=== PATIENT | female | born 1955 | race Caucasian/White ===

== ENCOUNTER 2016-09-25 22:54 | Emergency (ER) | payer SELFPAY ==
[~2016-09-25] VITALS: Ht 157.5 cm; Wt 63.0 kg
[2016-09-25 23:02] VITALS: Ht 157.5 cm; Wt 63.0 kg
[2016-09-26] MEDS ORDERED: HYDR-906 PO (00:43)
[2016-09-26] MEDS ORDERED: IBUP-1542 PO (00:43)
[2016-09-26] MEDS ORDERED: HYDROCODONE/APAP (10/325) TAB PO ONE (01:00)
--- NOTE | 2016-09-26 01:19 | ERD ---
ER Documentation Chief Complaint Date/Time DATE: 09/26/16 TIME: 01:15 Chief Complaint swollen upper lip/ left side of mouth,went to dentist for deep clean earlie HPI 61-year-old female presents to emergency department for complaints of left upper gum pain and swelling after the procedure was done today. Patient is complaining of pain, throbbing pain, 8/10 scale, mild better after taking Aleve. Patient denies any fever or chills. Patient had a procedure done in the dental office yesterday, was not differential pain medications. Patient denies any fever or chills. Patient is currently taking clindamycin to prevent infection of affected area. Patient was told to have very bad tooth decay. ROS All systems reviewed and are negative except as per history of present illness. Medications Home Meds Active Scripts Hydrocodone/Acetaminophen ([place] 5-325 Tablet) 1 Each Tablet, 1 TAB PO Q6H Y for SEVERE PAIN LEVEL 7-10, #20 TAB Prov:ORALIA HUNG [employer] DEVELOPMENT ENGINEER 09/26/16 Ibuprofen* (Motrin*) 600 Mg Tab, 600 MG PO Q6H Y for PAIN AND OR ELEVATED TEMP, #30 TAB Prov:ORALIA HUNG [employer] DEVELOPMENT ENGINEER 09/26/16 Allergies Allergies: Coded Allergies: No Known Drug Allergy (Verified Allergy, Unknown, 09/25/16) PMhx/Soc Medical and Surgical Hx: pt denies Surgical Hx History of Surgery: No Anesthesia Reaction: No Hx Neurological Disorder: No Hx Respiratory Disorders: No Hx Cardiac Disorders: Yes (HTN) Hx Psychiatric Problems: No Hx Miscellaneous Medical Probl: Yes (DM) Hx Alcohol Use: No Hx Substance Use: No Hx Tobacco Use: No Smoking Status: Never smoker FmHx Family History: No coronary disease, No diabetes, No other Physical Exam Vitals Vital Signs Date Time Temp Pulse Resp B/P Pulse Ox O2 Delivery O2 Flow Rate FiO2 09/25/16 23:02 99.0 85 20 151/75 99 Physical Exam GENERAL: The patient is well developed and appropriate for usual state of health, in no apparent distress. HEENT: Atraumatic. Ears: Normal tympanic membrane, no erythema or bulging. No ear canal swelling. No ear discharge. Nose: normal nasal turbinates, no erythema or swelling. Normal nasal discharge. Throat: oropharynx clear. No tonsillar swelling or tonsillar exudates. No lymphadenopathy. Patient's left upper dental area noted to be swollen, no facial abscess noted. Noted bilateral upper and lower tooth area decayed. CHEST: Clear to auscultation bilaterally. There are no rales, wheezes or rhonchi. HEART: Regular rate and rhythm. No murmurs, clicks, rubs or gallops. No S3 or S4. ABDOMEN: Soft, nontender and nondistended. Good bowel sounds. No rebound or guarding. No gross peritonitis. No gross organomegaly or masses. No Blank sign or McBurney point tenderness. BACK: No midline or flank tenderness. EXTREMITIES: Equal pulses bilaterally. There is no peripheral clubbing, cyanosis or edema. No focal swelling or erythema. Full range of motion. Grossly neurovascularly intact. NEURO: Alert and oriented. Cranial nerves 2-12 intact. Motor strength in all 4 extremities with 5/5 strength. Sensation grossly intact. Normal speech and gait. SKIN: There is no apparent rash or petechia. The skin is warm and dry. HEMATOLOGIC AND LYMPHATIC: There is no evidence of excessive bruising or lymphedema. No gross cervical, axillary, or inguinal lymphadenopathy. Results 24 hrs Current Medications Medications (Trade) Dose Ordered Sig/Po Route PRN Reason Start Time Stop Time Status Last Admin Dose Admin Acetaminophen/ Hydrocodone Bitart ([place] (10/325)) 1 tab ONCE ONCE PO 09/26/16 01:00 09/26/16 01:01 [place] Patient was given medication for pain here in emergency department, after treatment, patient verbalized feeling much better. Patient's pain is improved. Procedures/MDM Medical decision making: Patient symptoms most likely is consistent with pain from dental procedure done. It can also from her tooth decay. Patient currently already is on clindamycin to prevent infection on affected area, per scheduled was given for ibuprofen and [place] to help with pain control. No symptoms of any facial abscess. No symptoms of sepsis at this time. Patient presents hemodynamically stable. Patient was advised to return to emergency department for facial swelling, high fever, any worsening symptoms. Departure Diagnosis: Primary Impression: Pain, dental Condition: Stable Patient Instructions: Dental Pain Referrals: MAYITO TONG Additional Instructions: continue clindamycin, return for high fever, facial swelling worst symptoms ORALIA HUNG NP Sep 26, 2016 01:19
[2016-09-26 01:29] VITALS: BP 172/80; PULSE 78; RESP 18; TEMP 98.9
== END 2016-09-26 01:31 | disposition home or self-care (01) ==
LOC: FTE 22:54
DX: K08.89 Other specified disorders of teeth and supporting structures (principal); I10 Essential (primary) hypertension; E11.9 Type 2 diabetes mellitus without complications
CPT/HCPCS: 99283

== ENCOUNTER 2017-01-01 11:31 | Emergency (ER) | payer MEDICAID ==
[~2017-01-01] VITALS: Ht 152.4 cm; Wt 62.5 kg
[~2017-01-01 11:31] MED LIST: HYDR-906 PO; IBUP-1542 PO
[2017-01-01 11:33] VITALS: Ht 152.4 cm; Wt 62.5 kg
[2017-01-01] MEDS ORDERED: FAMOTIDINE 20 MG INJ INJ STA (13:03)
[2017-01-01] MEDS ORDERED: DIPHENHYDRAMINE 50 MG INJ IV STA (13:03)
[2017-01-01] MEDS ORDERED: SOD CHLORIDE 0.9% 500 ML IV STA (13:03)
[2017-01-01] MEDS ORDERED: METHYLPREDNISOLONE 125 MG INJ IV STA (13:03)
--- NOTE | 2017-01-01 13:10 | ERD ---
ER Documentation Chief Complaint Date/Time DATE: 01/01/17 TIME: 13:08 Chief Complaint CAME IN VIA INTAKE DUE TO ALLERGIC REACTION TWO DAYS AGO HPI This is a 61-year-old female presents to the emergency room for evaluation of a rash. The patient states that she has had a rash for approximately 4 days duration. She states that the rash started slowly on her arms and legs. She states it is itchy, she denies any difficulty swallowing or difficulty breathing. She is not taking any medication for this and came to the ER for evaluation. She denies having any allergies. Denies any new chemicals or new foods. ROS All systems reviewed and are negative except as per history of present illness. Medications Home Meds Active Scripts Hydrocodone/Acetaminophen ([place] 5-325 Tablet) 1 Each Tablet, 1 TAB PO Q6H Y for SEVERE PAIN LEVEL 7-10, #20 TAB Prov:ORALIA HUNG DEVELOPMENT DIRECTOR 09/26/16 Ibuprofen* (Motrin*) 600 Mg Tab, 600 MG PO Q6H Y for PAIN AND OR ELEVATED TEMP, #30 TAB Prov:ORALIA HUNG DEVELOPMENT DIRECTOR 09/26/16 Allergies Allergies: Coded Allergies: No Known Drug Allergy (Verified Allergy, Unknown, 09/25/16) PMhx/Soc History of Surgery: No Anesthesia Reaction: No Hx Neurological Disorder: No Hx Respiratory Disorders: No Hx Cardiac Disorders: Yes (HTN) Hx Psychiatric Problems: No Hx Miscellaneous Medical Probl: Yes (DM) Hx Alcohol Use: No Hx Substance Use: No Hx Tobacco Use: No Smoking Status: Never smoker Physical Exam Vitals Vital Signs Date Time Temp Pulse Resp B/P Pulse Ox O2 Delivery O2 Flow Rate FiO2 01/01/17 11:33 98.8 87 18 128/57 98 Physical Exam INITIAL VITAL SIGNS: Reviewed by me GENERAL: The patient is well developed and appropriate for usual state of health in no apparent distress HEENT: Pupils equal, round, and reactive to light. EOMI. There is no scleral icterus. NECK: C-spine is soft and supple, there is no meningismus. There is no cervical lymphadenopathy. LUNGS: Clear to auscultation bilaterally. There are no rales, wheezes or rhonchi. HEART: Regular rate and rhythm, no murmurs, clicks, rubs or gallops. ABDOMEN: Soft, non-tender, non-distended. There are bowel sounds in all four quadrants. No rebound or guarding. EXTREMITIES: There is no peripheral cyanosis or edema. No focal swelling or erythema. NEUROLOGICAL: The patient moves all four extremities with 5/5 strength. Cranial nerves II - XII are intact. Normal gait. Alert and oriented SKIN: Maculopapular rash noted over upper and lower extremities, negative skin sloughing, there is no apparent rash or petechiae. HEME/LYMPHATIC: There is no evidence of excessive bruising or lymphedema. PSYCHIATRIC: The patient does not appear anxious or depressed. Results 24 hrs Current Medications Medications (Trade) Dose Ordered Sig/Po Route PRN Reason Start Time Stop Time Status Last Admin Dose Admin Diphenhydramine HCl (Benadryl) 25 mg ONCE STAT IV 01/01/17 13:03 01/01/17 13:05 DC Famotidine (Pepcid Iv) 20 mg ONCE STAT INJ 01/01/17 13:03 01/01/17 13:05 DC Methylprednisolone Sodium Succinate 125 mg 125 mg ONCE STAT IV 01/01/17 13:03 01/01/17 13:05 DC Sodium Chloride (NS) 500 ml @ 500 mls/hr Q1H STAT IV 01/01/17 13:03 01/01/17 14:02 Procedures/MDM This 61-year-old female presents to the emergency room for evaluation of rash. When I evaluated this patient this patient did have macular papular rash bilateral upper and lower extremities. No signs of pharyngeal edema, no signs of anaphylaxis. The patient was given Benadryl, Pepcid, and Solu-Medrol. She has improvement of her symptoms after medications. The patient will be discharged home with prescription for prednisone, Benadryl, Pepcid Departure Diagnosis: Primary Impression: Allergic reaction Condition: Stable JOELJARRETT BLUERICHA KENT Jan 01, 2017 13:10
[2017-01-01] MEDS ORDERED: BEN25 PO (13:12)
[2017-01-01] MEDS ORDERED: FAMO-18 PO (13:12)
[2017-01-01] MEDS ORDERED: PRED20TA PO (13:12)
[2017-01-01 15:20] VITALS: BP 116/58; PULSE 80; RESP 16; TEMP 98.5
== END 2017-01-01 15:21 | disposition home or self-care (01) ==
LOC: FTE 11:31
DX: R21 Rash and other nonspecific skin eruption (principal); I10 Essential (primary) hypertension; E11.9 Type 2 diabetes mellitus without complications
CPT/HCPCS: 82962; 96374; 96375; J1200; J2930; J7040; Z7502; Z7610